=== PATIENT | male | born 1965 | race Asian ===

== ENCOUNTER 2019-01-03 08:58 | Emergency (ER) | payer OTHER ==
[~2019-01-03] VITALS: Ht 170.2 cm; Wt 75.0 kg
[2019-01-03] MEDS ORDERED: ALBUTEROL SULFATE HFA 90 MCG/PUFF 8 GM INHALER IH ONE (09:15)
[2019-01-03] MEDS ORDERED: ACETAMINOPHEN 500 MG TABLET PO ONE (09:15)
[2019-01-03] MEDS ORDERED: ALBU8HFA IH (09:19)
[2019-01-03] MEDS ORDERED: GABA-529 PO (09:19)
[2019-01-03 10:21] LABS: INFLUENZA TYPE A POSITIVE FOR TYPE A (NEGATIVE); INFLUENZA TYPE B NEGATIVE FOR TYPE B (NEGATIVE)
[2019-01-03] MEDS ORDERED: OSELTAMIVIR PHOSPHATE 75 MG CAPSULE PO ONE (10:30)
[2019-01-03 10:44] VITALS: BP 121/80
== END 2019-01-03 10:58 | disposition home or self-care (01) ==
LOC: EDBD 08:59 → EMS 08:59
DX: J10.1 Influenza due to other identified influenza virus with other respiratory manifestations (principal); R11.10 Vomiting, unspecified
CPT/HCPCS: 87804; 94640; J3535

== ENCOUNTER 2020-02-08 08:37 | Emergency (ER) | payer OTHER ==
[~2020-02-08] VITALS: Ht 167.6 cm; Wt 75.0 kg
[~2020-02-08 08:37] MED LIST: ALBU8HFA IH; GABA-529 PO
[2020-02-08] MEDS ORDERED: CYCLOBENZAPRINE HCL 10 MG TABLET PO ONE (09:30)
[2020-02-08 11:01] VITALS: BP 129/71
== END 2020-02-08 11:02 | disposition home or self-care (01) ==
LOC: EMS 08:44
DX: M62.830 Muscle spasm of back (principal)

== ENCOUNTER 2021-09-01 03:58 | Emergency (ER) | payer OTHER ==
[~2021-09-01] VITALS: Ht 170.2 cm; Wt 65.9 kg
[~2021-09-01 03:58] MED LIST changes: +GABA-1216 PO; -GABA-529 PO
[2021-09-01] MEDS ORDERED: CLINDAMYCIN HCL 150 MG CAPSULE PO ONE (04:45)
[2021-09-01 04:48] VITALS: BP 116/85
== END 2021-09-01 06:03 | disposition home or self-care (01) ==
LOC: EMS 03:59
DX: L98.411 Non-pressure chronic ulcer of buttock limited to breakdown of skin (principal); L03.317 Cellulitis of buttock; L02.31 Cutaneous abscess of buttock; F14.90 Cocaine use, unspecified, uncomplicated; F19.90 Other psychoactive substance use, unspecified, uncomplicated
CPT/HCPCS: 99283

== ENCOUNTER 2021-11-17 02:49 | Emergency (ER) | payer OTHER ==
[2021-11-17] MEDS ORDERED: CEPHALEXIN MONOHYDRATE 500 MG CAPSULE PO ONE (05:30)
[2021-11-17] MEDS ORDERED: IBUPROFEN 600 MG TABLET PO ONE (05:30)
[2021-11-17] MEDS ORDERED: SULFAMETHOX/TRIMETH DS 800-160 MG/TABLET PO ONE (05:30)
[2021-11-17 05:56] VITALS: BP 131/82
== END 2021-11-17 06:12 | disposition home or self-care (01) ==
LOC: EMS 02:51
DX: S30.860A Insect bite (nonvenomous) of lower back and pelvis, initial encounter (principal); L02.31 Cutaneous abscess of buttock; F14.90 Cocaine use, unspecified, uncomplicated; F15.90 Other stimulant use, unspecified, uncomplicated; Z79.899 Other long term (current) drug therapy; W57.XXXA Bitten or stung by nonvenomous insect and other nonvenomous arthropods, initial encounter; Y93.89 Activity, other specified; Y92.89 Other specified places as the place of occurrence of the external cause; Y99.8 Other external cause status
CPT/HCPCS: 99284; Z7502; Z7610

== ENCOUNTER 2022-04-21 00:58 | Emergency (ER) | payer OTHER ==
[~2022-04-21] VITALS: Ht 170.2 cm; Wt 68.2 kg
[2022-04-21] MEDS ORDERED: IBUPROFEN 600 MG TABLET PO ONE (03:15)
[2022-04-21] MEDS ORDERED: DOXYCYCLINE HYCLATE 100 MG TABLET PO ONE (03:15)
[2022-04-21] MEDS ORDERED: DOXY-354 PO (03:46)
[2022-04-21 04:00] VITALS: BP 119/63
== END 2022-04-21 04:19 | disposition home or self-care (01) ==
LOC: EMS 01:01
DX: L02.415 Cutaneous abscess of right lower limb (principal); F14.90 Cocaine use, unspecified, uncomplicated; F15.90 Other stimulant use, unspecified, uncomplicated; Z79.899 Other long term (current) drug therapy
CPT/HCPCS: 99283